=== PATIENT | female | born 1955 | race Two or more races ===

== ENCOUNTER 2024-10-29 20:09 | Emergency (ER) | payer OTHER ==
[~2024-10-29] VITALS: Ht 137.2 cm; Wt 79.8 kg
[2024-10-29] MEDS ORDERED: ATACAND32 MG PO (20:31)
[2024-10-29] MEDS ORDERED: BISOPROLOL FUMAR5 MG PO (20:31)
[2024-10-29] MEDS ORDERED: AZOR 5-40 MG T1 EACH PO (20:32)
[2024-10-29 21:59] LABS: HEMATOCRIT 39.6 % (36.0-45.00); HEMOGLOBIN 13.4 g/dL (12.0-15.00); MEAN CELL VOLUME 91.4 fL (80.00-100.00); MEAN CORPUSCULAR HEMOGLOBIN 30.9 pg (27.00-32.0); MEAN CORPUSCULAR HGB CONC 33.8 g/dl (32.0-36.0); PLATELET COUNT 217 K/uL (150-450); RED BLOOD COUNT 4.34 M/uL (4.00-6.00); RED CELL DISTRIBUTION WIDTH 13.6 % (11.5-14.5)
== END 2024-10-29 22:45 | disposition home or self-care (01) ==
LOC: ER 20:11
PROVIDERS: General Practice
DX: I10 Essential (primary) hypertension (principal)